=== PATIENT | male | born 1985 | race Two or more races ===

== ENCOUNTER 2024-04-07 18:34 | Emergency (ER) | payer SELFPAY ==
[~2024-04-07] VITALS: Ht 180.3 cm; Wt 63.0 kg
[2024-04-07 18:45] VITALS: PULSE 110; RESP 17; TEMP 98; O2SAT 98
--- NOTE | 2024-04-07 19:52 | DVH ---
CLINICAL INDICATION: LOWER LUMBAR BACK PAIN TECHNIQUE: 2 radiographic views of the lumbar spine were obtained. Comparison: None FINDINGS/IMPRESSION: There is no evidence of acute fracture or dislocation. Compression fracture of T12 is noted. Age ind eterminate. There are no prior studies for comparison The visualized joint space is well maintained. The alignment is anatomical. There is no radiopaque foreign body.
[2024-04-07 20:59] LABS: Urine Bacteria None Seen /hpf (None Seen)
[2024-04-07] MEDS ORDERED: IBUP-1456 PO (21:03)
--- NOTE | 2024-04-07 21:04 | ED.PDOC ---
Back pain HPI HPI Comments 38-YEAR-OLD MALE PRESENTS TO ER WITH COMPLAINTS OF FALL INJURY X5 DAYS. PATIENT REPORTS THAT HE FELL FROM A "ZIP LINE" AT HOME 5 DAYS AGO AND LANDED ONTO HIS BUTTOCKS ONTO HARD GROUND AND HAS SINCE BEEN EXPERIENCING 10/10 LOWER LUMBAR BACK PAIN WITHOUT RADIATION. UNSURE EXACT HEIGHT OF FALL AND DENIES HEAD INJURY/LOC. PATIENT ALSO STATES HE HAS BEEN EXPERIENCING CONSTIPATION X5 DAYS. PATIENT PRESENTS TO ER AMBULATORY ON ARRIVAL, ALERT AND ORIENTED X 4, WITH STEADY GAIT, IN NO DISTRESS. DENIES FEVER, NAUSEA/VOMITING, SHORTNESS OF BREATH, CHEST PAIN, ABDOMINAL PAIN, THORACIC BACK PAIN, SADDLE ANESTHESIA/ NUMBNESS/TINGLING, EXTREMITY WEAKNESS, CHANGES IN URINATION OR ANY FURTHER SYMPTOMS/COMPLAINTS Chief Complaint: Fall Injury Time Seen by MD: 18:39 Primary Care Provider: JESSICA Reviewed Notes: Nurses Notes, Medications, Allergies Allergies: Coded Allergies: NO KNOWN ALLERGIES (Unverified , 01/10/14) Home Meds Active Scripts Methylprednisolone (Medrol Dosepak) 4 Mg Vivek, 4 MG PO UD, #21 TAB UAD Prov:MACARENA BOWIE 04/07/24 Magnesium Citrate (Magnesium Citrate) 1.745 Gm/30 Ml Wendi, 150 ML PO BID, #1 BOTTLE 0 Refills Prov:MACARENA BOWIE 04/07/24 Acetaminophen (Acetaminophen) 500 Mg Tab, 500 MG PO Q4HPRN, #30 TAB 0 Refills Prov:MACARENA BOWIE 04/07/24 Discontinued Scripts Ibuprofen (Ibuprofen) 800 Mg Tab, 1 TAB PO TID PRN, #30 TAB 0 Refills Prov:MACARENA BOWIE 04/07/24 Information Source: Patient Mode of Arrival: Ambulatory Past Medical History PAST MEDICAL HISTORY: Denies Surgical History: Appendectomy Family History Family History: Unknown Social History Smoker: Less Than 1 Pack/Day Alcohol: Occasionally Drugs: Methamphetamine Lives In: Home Constitutional: denies: chills, diaphoresis, fatigue, fever, malaise, sweats, weakness, others EENTM: denies: blurred vision, double vision, ear bleeding, ear discharge, ear drainage, ear pain, ear ringing, eye pain, eye redness, hearing loss, mouth pain, mouth swelling, nasal discharge, nose bleeding, nose congestion, nose pain, photophobia, tearing, throat pain, throat swelling, voice changes, others Respiratory: denies: cough, hemoptysis, orthopnea, SOB at rest, shortness of breath, SOB with excertion, stridor, wheezing, others Cardiovascular: denies: chest pain, dizzy spells, diaphoresis, Dyspnea on exertion, edema, irregular heart beat, left arm pain, lightheadedness, palpitations, PND, syncope, others Gastrointestinal: reports: others ( STATED IN HPI) Genitourinary: denies: burning, dysuria, flank pain, frequency, hematuria, in continence, penile discharge, penile sore, pain, testicle pain, testicle swelling, urgency, others Neurological: denies: dizziness, fainting, headache, left sided numbness, left sided weakness, numbness, paresthesia, pre-existing deficit, right sided numbness, right sided weakness, seizure, speech problems, tingling, tremors, weakness, others Musculoskeletal: reports: others ( STATED IN HPI) Integumetry: denies: bruises, change in color, change in hair/nails, dryness, laceration, lesions, lumps, rash, wounds, others Allergic/Immunocompromised: denies: Difficulty Healing, Frequent Infections, Hives, Itching, others Hematologic/Lymphatic: denies: anemia, blood clots, easy bleeding, easy bruising, swollen glands, others Endocrine: denies: excessive hunger, excessive sweating, excessive thirst, excessive urination, flushing, intolerance to cold, intolerance to heat, unexplained weight gain, unexplained weight loss, others Psychiatric: denies: anxiety, bipolar disorder, depression, hopeless, panic disorder, schizophrenia, sleepless, suicidal, others Physical Exam General Appearance: No Apparent Distress HEENT: Normal ENT Inspection, PERRL/EOMI, Pharynx Normal, TMs Normal Neck: Full Range of Motion, Non-Tender, Normal Respiratory: Chest Non-Tender, Lungs Clear, No Accessory Muscle Use, No Respiratory Distress, Normal Breath Sounds Cardiovascular: No Murmur, No Gallop, Regular Rate/Rhythm Breast Exam: Deferred Gastrointestinal: No Organomegaly, Non Tender, No Pulsatile Mass, Normal Bowel Sounds, Soft Genitalia: Deferred Pelvic: Deferred Rectal: Normal Exam Extremities: Normal capillary refill, Normal range of motion Musculoskeletal : Extremity Location: Back (TTP CENTRALIZED TO LOWER LUMBAR SPINE NOTED. NO SKIN CHANGES NOTED. NO TTP TO THORACIC SPINE/OTHER TTP TO SPINE APPRECIATED. STEADY GAIT NOTED) Neurologic: Alert, drupal architect II-XII nml as Tested, No Motor Deficits, Normal Affect, Normal Mood, No Sensory Deficits Cerebellar Function: Normal Reflexes: Normal Skin: Dry, Normal Color, Warm Peripheral Pulses: 2+ Radial (R), 2+ Radial (L), 2+ Brachial (R), 2+ Brachial (L) Lymphatic: No Adenopathy Was a procedure done? Was a procedure done?: No Sedation Sedation?: No Back Pain Differential Dx Differential Diagnosis: AAA, Bowel Obstruction, Other (NEUROVASCULAR INJURY) X-Ray, Labs, Meds, VS Vital Signs Date Time Temp Pulse Resp B/P (MAP) Pulse Ox O2 Delivery O2 Flow Rate FiO2 04/07/24 21:37 168/114 (132) 04/07/24 18:45 98.0 110 17 167/125 (139) 98 98.0 04/07/24 18:45 98.0 110 17 167/125 (139) 98 04/07/24 18:45 Room Air Lab Test 04/07/24 20:58 Range/Units Urine Color Yellow Yellow Urine Clarity Clear Clear Urine pH 5.5 5.0-9.0 Urine Specific [place] 1.028 1.001-1.035 Urine Protein Negative Negative Urine Ketones Negative Negative Urine Blood Negative Negative /uL Urine Nitrite Negative Negative Urine Bilirubin Negative Negative Urine Urobilinogen Normal Negative mg/dL Urine Leukocyte Esterase Negative Negative /uL Urine RBC 1 0 - 3 /hpf Urine WBC 1 0 - 3 /hpf Urine Squamous Epithelial Cells Few <5 /hpf Urine Bacteria None seen None Seen /hpf Urine Mucus Few None Seen Urine Glucose Normal Normal mg/dL Current Medications Medications (Trade) Dose Ordered Sig/[place]tar Route Start Time Stop Time Status Last Admin Methylprednisolone Sodium Succinate (Solu Medrol) 125 mg ONCE ONCE IM 04/07/24 22:15 04/07/24 22:16 DC 04/07/24 23:07 Acetaminophen (Tylenol Tablet) 650 mg ONCE ONCE PO 04/07/24 22:15 04/07/24 22:16 DC 04/07/24 23:08 PATIENT: JEAN PAUL FREITASACCT: [id number]: [id number] : 1985 LOC: ER ROOM / BED: / AGE / SEX: 38 / M ADM STATUS: REG ER SERVICE 13 ORDERING PHYSICIAN: MACARENA BOWIE PROCEDURE(s): LUMB2 - LUMBAR SPINE 3 VIEW REASON: LOWER LUMBAR BACK PAIN ORDER NUMBER(s): [id number], ACCESSION NUMBER(s): [id number] CLINICAL INDICATION: LOWER LUMBAR BACK PAIN TECHNIQUE: 2 radiographic views of the lumbar spine were obtained. Comparison: None FINDINGS/IMPRESSION: There is no evidence of acute fracture or dislocation. Compression fracture of T12 is noted. Age indeterminate. There are no prior studies for comparison The visualized joint space is well maintained. The alignment is anatomical. There is no radiopaque foreign body. ATED BY: MODE SYKES Jr., DO DICTATED DATE/TIME: 04/07/241948 SIGNED BY: MODE SYKES Jr., SIGNED DATE/TIME: 04/07/241948 CC: PATIENT: JEAN PAUL FREITASACCT: [id number] UNIT: [id number] : 1985 LOC: ER ROOM / BED: / AGE / SEX: 38 / M ADM STATUS: REG ER SERVICE 04 ORDERING PHYSICIAN: MACARENA BOWIE PROCEDURE(s): ABPL - CT AB PEL WO CON-NO ORAL OR IV REASON: CONSTIPATION ORDER NUMBER(s): [id number], ACCESSION NUMBER(s): [id number] Exam: CT CT AB PEL WO CON-NO ORAL OR IV History: CONSTIPATION Comparison Study: None available at time of dictation. TECHNIQUE: Multidetector CT of the abdomen was performed from lung bases to pubic symphysis. Imaging was performed without IV contrast. Axial, coronal and sagittal multiplanar reformats were obtained from the axial data set by the technologist. Radiation Dose Information: CT Dose: CTDI volume is 10.15 mGy. Dose-length product is 529.62 mGy*cm FINDINGS: Evaluation of solid organs is limited due to lack of intravenous contrast use. Findings: Lung Bases: No acute or significant lung base finding. Normal heart size. No pleural or pericardial effusion. Liver: The liver is normal in size. No focal lesions. Gallbladder and Biliary Tree: Unremarkable Spleen: Unremarkable Pancreas: The pancreas is grossly normal in appearance. Adrenal Glands: Unremarkable Kidneys: Kidneys are grossly normal without calculi or hydronephrosis. Bladder: Grossly unremarkable for degree of distention. Bowel: The stomach is grossly normal in appearance. Small bowel and colon are normal in caliber and distribution. The appendix is not visualized; however, no secondary findings of acute appendicitis identified. Ascites: Absent Lymphadenopathy: No mesenteric, retroperitoneal or periportal lymphadenopathy. Abdominal Wall and Mesentery: Unremarkable. Vasculature: The visualized abdominal aorta is normal in size and caliber. Evaluation of abdominal and pelvic vessels is limited due to lack of intravenous contrast. Pelvic Organs: Unremarkable Musculoskeletal: Age-indeterminate compression fracture deformity of T12. Degenerative changes of the spine. Soft tissues: Unremarkable IMPRESSION: 1. Prominent stool and gas burden throughout the colon without gross dilatation of the colon. Findings consistent with constipation. 2. Age-indeterminate compression fracture deformity of T12. Radiation optimization: All CT scans at this facility use at least one of these dose optimization techniques: automated exposure control mA and/or kV adjustment per patient size (includes targeted exams where dose is matched to clinical indication) or iterative reconstruction. HS:Y ATED BY: PANTERA HUNTER DO DICTATED DATE/TIME: 04/07/242141 SIGNED BY: PANTERA HUNTER DO SIGNED DATE/TIME: 04/07/242141 CC: LUMBAR SPINE X-RAY REVIEWED CT ABDOMEN/PELVIS WITHOUT CONTRAST REVIEWED URINALYSIS REVIEWED WITHOUT ANY SIGNIFICANT ABNORMALITIES TYLENOL 650 MG PO ORDERED SOLU-MEDROL 125 MG IM ORDERED PATIENT NEUROVASCULARLY INTACT AND HAD IMPROVEMENT IN SYMPTOMS PRIOR TO DISCHARGE ADVISED ON REST/NO STRENUOUS ACTIVITY METHAMPHETAMINE/SMOKING CESSATION DISCUSSED AND ADVISED PATIENT PROVIDED INFORMATION WITH REGARDS TO LOCAL ORTHOPEDICS AND ADVISED TO FOLLOW UP IN 1-2 DAYS ADVISED TO FOLLOW UP WITH PCP IN 1-2 DAYS PATIENT ALERT AND ORIENTED X4 PRIOR TO DISCHARGE. PATIENT VERBALIZED UNDERSTANDING AND AGREEABLE WITH CURRENT PLAN OF CARE ADVISED TO RETURN TO ER IMMEDIATELY IF SYMPTOMS WORSEN Images Reviewed?: Images reviewed and evaluated by me Time of 1ST Reevaluation: 20:44 Reevaluation 1ST: N/A Time of 2ND Reevaluation: 22:00 Reevaluation 2ND: Improved Patient Education/Counseling: Diagnosis, Treatment, Prognosis, Need For Follow Up Family Education/Counseling: No Family Present Departure 1 Departure Time of Disposition: 22:02 Impression: Primary Impression: Lumbar contusion Qualified Codes: S30.0XXA - Contusion of lower back and pelvis, initial encounter Additional Impressions: Constipation Qualified Codes: K59.00 - Constipation, unspecified Hx of compression fracture of spine Disposition: HOME / SELF CARE / HOMELESS Condition: Stable e-Prescriptions Methylprednisolone (Medrol Dosepak) 4 Mg Vivek 4 MG PO UD, #21 TAB UAD Prov: MACARENA BOWIE 04/07/24 Magnesium Citrate (Magnesium Citrate) 1.745 Gm/30 Ml Wendi 150 ML PO BID, #1 BOTTLE 0 Refills Prov: MACARENA BOWIE 04/07/24 Acetaminophen (Acetaminophen) 500 Mg Tab 500 MG PO Q4HPRN, #30 TAB 0 Refills Prov: MACARENA BOWIE 04/07/24 Critical Care Note Critical Care Time?: No Stability Stability form required: No Heart Score Heart Score: Heart Score Response (Comments) Value History N/A 0 EKG N/A 0 Age N/A 0 Risk Factors N/A 0 Troponin N/A 0 Total 0 MACARENA BOWIE Apr 07, 2024 21:03
[2024-04-07 21:12] LABS: Urine Blood Negative /uL (Negative); Urine Clarity Clear (Clear); Urine Color Yellow (Yellow); Urine Mucus FEW (None Seen); Urine Protein, UAD Negative (Negative); Urine Specific Gravity 1.028 (1.001-1.035); Urine Squamous Epithelial Cell FEW /hpf (<5); Urine Urobilinogen Normal (Negative); Urine WBC 1 /hpf (0 - 3); Urine pH 5.5 (5.0-9.0)
[2024-04-07] MEDS ORDERED: ACET500T58 PO (21:20)
[2024-04-07 21:37] VITALS: BP 168/114
--- NOTE | 2024-04-07 21:45 | DVH ---
Exam: CT CT AB PEL WO CON-NO ORAL OR IV History: CONSTIPATION Comparison Study: None available at time of dictation. TECHNIQUE: Multidetector CT of the abdomen was performed from lung bases to pubic symphysis. Imaging was performed without IV contrast. Axial, coronal and sagittal multiplanar reformats were obtained fr om the axial data set by the technologist. Radiation Dose Information: CT Dose: CTDI volume is 10.15 mGy. Dose-length product is 529.62 mGy*cm FINDINGS: Evaluation of solid organs is limited due to lack of intravenous contrast use. Findings: Lung Bases: No acute or significant lung base finding. Normal heart size. No pleural or pericardial effusion. Liver: The liver is normal in size. No focal lesions. Gallbladder and Biliary Tree: Unremarkable Spleen: Unremarkable Pancreas: The pancreas is grossly normal in appearance. Adrenal Glands: Unremarkable Kidneys: Kidneys are grossly normal without calculi or hydronephrosis. Bladder: Grossly unremarkable for degree of distention. Bowel: The stomach is grossly normal in appearance. Small bowel and colon are normal in caliber and d istribution. The appendix is not visualized; however, no secondary findings of acute appendicitis id entified. Ascites: Absent Lymphadenopathy: No mesenteric, retroperitoneal or periportal lymphadenopathy. Abdominal Wall and Mesentery: Unremarkable. Vasculature: The visualized abdominal aorta is normal in size and caliber. Evaluation of abdominal a nd pelvic vessels is limited due to lack of intravenous contrast. Pelvic Organs: Unremarkable Musculoskeletal: Age-indeterminate compression fracture deformity of T12. Degenerative changes of the spine. Soft tissues: Unremarkable IMPRESSION: 1. Prominent stool and gas burden throughout the colon without gross dilatation of the colon. Findin gs consistent with constipation. 2. Age-indeterminate compression fracture deformity of T12. Radiation optimization: All CT scans at this facility use at least one of these dose optimization te chniques: automated exposure control mA and/or kV adjustment per patient size (includes targeted exa ms where dose is matched to clinical indication) or iterative reconstruction. HS:Y
[2024-04-07] MEDS ORDERED: MAGNSOL PO (22:05)
[2024-04-07] MEDS ORDERED: METH4PAK PO (22:09)
[2024-04-07] MEDS: methylPREDNISolone SOD SUCC 125 MG/2 ML VL IM ONE (23:07)
[2024-04-07] MEDS: ACETAMINOPHEN 325 MG TAB PO ONE (23:08)
== END 2024-04-07 23:16 | disposition home or self-care (01) ==
LOC: ER 18:37
DX: S30.0XXA Contusion of lower back and pelvis, initial encounter (principal); K59.00 Constipation, unspecified; F17.210 Nicotine dependence, cigarettes, uncomplicated; Z90.49 Acquired absence of other specified parts of digestive tract; Z79.899 Other long term (current) drug therapy; W18.39XA Other fall on same level, initial encounter; Y93.89 Activity, other specified; Y92.89 Other specified places as the place of occurrence of the external cause; Y99.8 Other external cause status
CPT/HCPCS: 72100; 74176; 81001; 96372; 99285; J2919

== ENCOUNTER 2024-10-11 17:45 | Emergency (ER) | payer SELFPAY ==
[~2024-10-11] VITALS: Ht 180.3 cm; Wt 83.0 kg
[~2024-10-11 17:45] MED LIST: ACET500T58 PO; MAGNSOL PO; METH4PAK PO
[2024-10-11 18:08] VITALS: BP 146/101; PULSE 115; RESP 16; TEMP 99.5; O2SAT 99
[2024-10-11] MEDS ORDERED: TETANUS-DIPTH-ACEL PERTUSSIS 0.5ML SYR Tdap IM ONE (22:00)
--- NOTE | 2024-10-11 22:41 | ED.PDOC ---
History of Present Illness(SKN HPI Comments C/O HARD, TENDER ABCESS TO POSTERIOR HEAD. STATES HE GOT A HAIRCUT WITH CLIPPERS AND THEN NOTICED THE ABCESS. HARD AND RED Chief Complaint: Wound Check Time Seen by MD: 19:25 Primary Care Provider: NONE History of Present Illness: Nurses Notes, Medications, Allergies Allergies: Coded Allergies: NO KNOWN ALLERGIES (Unverified , 01/10/14) Home Meds Active Scripts Methylprednisolone (Medrol Dosepak) 4 Mg Vivek, 4 MG PO UD, #21 TAB UAD Prov:MACARENA BOWIE 04/07/24 Magnesium Citrate (Magnesium Citrate) 1.745 Gm/30 Ml Wendi, 150 ML PO BID, #1 BOTTLE 0 Refills Prov:MACARENA BOWIE 04/07/24 Acetaminophen (Acetaminophen) 500 Mg Tab, 500 MG PO Q4HPRN, #30 TAB 0 Refills Prov:MACARENA BOWIE 04/07/24 Information Source: Patient Mode of Arrival: Ambulatory Past Medical History Immunizations: Current Medical History: Denies Operations: Denies Family History Family History: Reviewed,noncontributory to illness, Unknown Social History Smoking: Less Than 1 Pack/Day Alcohol: Occasionally Drugs: Methamphetamine Lives In: Home Constitutional: denies: chills, diaphoresis, fatigue, fever, malaise, sweats, weakness, others EENTM: denies: blurred vision, double vision, ear bleeding, ear discharge, ear drainage, ear pain, ear ringing, eye pain, eye redness, hearing loss, mouth pain, mouth swelling, nasal discharge, nose bleeding, nose congestion, nose pain, photophobia, tearing, throat pain, throat swelling, voice changes, others Respiratory: denies: cough, hemoptysis, orthopnea, SOB at rest, shortness of breath, SOB with excertion, stridor, wheezing, others Cardiovascular: denies: chest pain, dizzy spells, diaphoresis, Dyspnea on exertion, edema, irregular heart beat, left arm pain, lightheadedness, palpitations, PND, syncope, others Gastrointestinal: denies: abdomen distended, abdominal pain, blood streaked bowels, constipated, diarrhea, dysphagia, difficulty swallowing, hematemesis, melena, nausea, poor appetite, poor fluid intake, rectal bleeding, rectal pain, vomiting, others Genitourinary: denies: burning, dysuria, flank pain, frequency, hematuria, incontinence, penile discharge, penile sore, pain, testicle pain, testicle swelling, urgency, others Neurological: denies: dizziness, fainting, headache, left sided numbness, left sided weakness, numbness, paresthesia, pre-existing deficit, right sided numbness, right sided weakness, seizure, speech problems, tingling, tremors, w eakness, others Musculoskeletal: denies: back pain, gout, joint pain, joint swelling, muscle pain, muscle stiffness, neck pain, others Integumetry: reports: lesions (posterior head); denies: bruises, change in color, change in hair/nails, dryness, laceration, lumps, rash, wounds, others Allergic/Immunocompromised: denies: Difficulty Healing, Frequent Infections, Hives, Itching, others Hematologic/Lymphatic: denies: anemia, blood clots, easy bleeding, easy bruising, swollen glands, others Endocrine: denies: excessive hunger, excessive sweating, excessive thirst, excessive urination, flushing, intolerance to cold, intolerance to heat, unexplained weight gain, unexplained weight loss, others Psychiatric: denies: anxiety, bipolar disorder, depression, hopeless, panic disorder, schizophrenia, sleepless, suicidal, others Physical Exam General Appearance: No Apparent Distress, Normal HEENT: Pharynx Normal Neck: Full Range of Motion, Non-Tender Respiratory: Lungs Clear, No Respiratory Distress, Normal Breath Sounds Cardiovascular: No Edema, No Murmur, Normal Peripheral Pulses, Regular Rate/Rhythm Breast Exam: Deferred Gastrointestinal: Non Tender, Soft Genitalia: Deferred Pelvic: Deferred Rectal: Deferred Extremities: Normal capillary refill, Normal inspection, Normal range of motion, Non-tender, No pedal edema Musculoskeletal : Apperance: Normal Neurologic: Alert, No Motor Deficits, Normal Affect, Normal Mood, No Sensory Deficits Cerebellar Function: Normal Reflexes: Normal Skin: Dry, Normal Color, Warm, Wounds (Indurated erythemic lump posterior scalp no noted drainage or central opening no noted streaking) Lymphatic: No Adenopathy Was a procedure done? Was a procedure done?: No Differential Diagnosis (INTG) Differential Diagnosis: Abrasion, Cellulitis, Hematoma Differential Diagnosis: Abscess X-Ray, Labs, Meds, VS Vital Signs Date Time Temp Pulse Resp B/P (MAP) Pulse Ox O2 Delivery O2 Flow Rate FiO2 10/11/24 18:08 99.5 115 16 146/101 (116) 99 99.5 X-Ray, Labs, Meds, VS Comment Name called x3 lobby and outside and 10 checked no answer Time of 1ST Reevaluation: 19:25 Reevaluation 1ST: Unchanged Patient Education/Counseling: Diagnosis, Treatment, Prognosis, Need For Follow Up Family Education/Counseling: No Family Present Departure 1 Departure Time of Disposition: 22:45 Impression: Primary Impression: Abscess Disposition: 07 LEFT AWOL/ELOPED Condition: Stable Discharged With: Self Critical Care Note Critical Care Time?: No Stability Stability form required: KRIS Bertrand Oct 11, 2024 22:41
== END 2024-10-11 22:44 | disposition left against medical advice (07) ==
LOC: ER 17:45
DX: L02.811 Cutaneous abscess of head [any part, except face] (principal)